=== PATIENT | male | born 1945 | race Two or more races ===

== ENCOUNTER 2017-10-14 20:04 | Inpatient (IN) | payer MEDICARE, OTHER ==
[~2017-10-14] VITALS: Ht 175.3 cm; Wt 110.7 kg
[~2017-10-14 20:04] MED LIST: FLOMAX0.4 MG ORAL; IBUPROFEN600 MG ORAL; KEFLEX500 MG ORAL; NKM; NORCO 5-325 TA1 EACH ORAL
[2017-10-14 20:18] VITALS: BP 108/65
[2017-10-14 20:57] LABS: BASOPHILS % (AUTO) 1.6 % (0.0-2.0); EOSINOPHILS % (AUTO) 2.5 % (0.0-3.0); HEMATOCRIT 44.4 % (42.0-52.0); HEMOGLOBIN 15.5 G/DL (14.2-18.0); LYMPHOCYTES % (AUTO) 25.4 % (20.0-45.0); MEAN CORPUSCULAR VOLUME 92 FL (80-99); MONOCYTES % (AUTO) 7.7 % (1.0-10.0); NEUTROPHILS % (AUTO) 62.9 % (45.0-75.0); PLATELET COUNT 164 K/UL (150-450); RED BLOOD COUNT 4.86 M/UL (4.70-6.10); RED CELL DISTRIBUTION WIDTH 12.5 % (11.6-14.8); WHITE BLOOD COUNT 7.8 K/UL (4.8-10.8)
[2017-10-14 21:09] LABS: ANION GAP 7 mmol/L (5-15); BLOOD UREA NITROGEN 19 mg/dL (7-18); CALCIUM 9.1 MG/DL (8.5-10.1); CARBON DIOXIDE 24 MMOL/L (21-32); CHLORIDE 107 MMOL/L (98-107); CREATININE 1.2 MG/DL (0.55-1.30); POTASSIUM 3.8 MMOL/L (3.5-5.1); SODIUM 138 MMOL/L (136-145)
[2017-10-14 21:22] LABS: ALANINE AMINOTRANSFERASE 31 U/L (12-78); ALBUMIN 3.5 G/DL (3.4-5.0); ALBUMIN/GLOBULIN RATIO 0.9 (1.0-2.7); ALKALINE PHOSPHATASE 64 U/L (46-116); ASPARTATE AMINO TRANSFERASE 59 U/L (15-37); BILIRUBIN,TOTAL 0.3 MG/DL (0.2-1.0); CKMB 80.9 NG/ML (0.0-3.6); CREATINE KINASE 603 U/L (26-308)
[2017-10-14] MEDS ORDERED: Nitroglycerin 2% oint pkt TOPIC ONE (21:30)
--- NOTE | 2017-10-14 22:07 | Emergency Room Report ---
History of Present Illness General Chief Complaint: Dyspnea/Respdistress Source: Patient (Obey Mitchell MD) Source: Patient (Spenser Hilario M.D.) Present Illness HPI 72-year-old male presents ED complaining of shortness of breath. Started 3 days ago. Notes some cough. States he short of breath while at rest. Notes some occasional chest pain. Sharp, 5 out of 10, nonradiating. Admits to smoking. Denies drug use. Notes history of lung cancer and had part of his lung resected at [facility]. No other aggravating relieving factors. Denies any other associated symptoms (Obey Mitchell MD) Allergies: Coded Allergies: NO KNOWN ALLERGIES (Unverified Allergy, Unknown, 10/03/15) Patient History Past Medical History: other - lung cancer Past Surgical History: none Pertinent Family History: none Social History: Reports: smoking; Denies: alcohol use, drug use Immunizations: UTD Reviewed Nursing Documentation: PMH: Agreed; PSxH: Agreed (Obey Mitchell MD) Nursing Documentation-PMH Past Medical History: No History, Except For Hx Cancer: Yes - lung cancer (Obey Mitchell MD) Review of Systems All Other Systems: negative except mentioned in HPI (Obey Mitchell MD) Physical Exam Vital Signs Date Time Temp Pulse Resp B/P (MAP) Pulse Ox O2 Delivery O2 Flow Rate FiO2 10/14/17 20:08 98.3 47 22 103/60 94 Room Air 98.2 Sp02 EP Interpretation: reviewed, normal General Appearance: no apparent distress, alert, GCS 15, non-toxic Head: normocephalic, atraumatic Eyes: bilateral eye normal inspection, bilateral eye PERRL ENT: hearing grossly normal, normal pharynx, no angioedema, normal voice Neck: full range of motion, supple/symm/no masses Respiratory: chest non-tender, lungs clear, normal breath sounds, speaking full sentences Cardiovascular #1: regular rate, rhythm, no edema Cardiovascular #2: 2+ carotid (R), 2+ carotid (L), 2+ radial (R), 2+ radial (L) , 2+ dorsalis pedis (R), 2+ dorsalis pedis (L) Gastrointestinal: normal bowel sounds, non tender, soft, non-distended, no guarding, no rebound Rectal: deferred Genitourinary: normal inspection, no CVA tenderness Musculoskeletal: back normal, gait/station normal, normal range of motion, non- tender Neurologic: alert, oriented x3, responsive, motor strength/tone normal, sensory intact, speech normal Psychiatric: judgement/insight normal, memory normal, mood/affect normal, no suicidal/homicidal ideation Reflexes: 3+ bicep (R), 3+ bicep (L), 3+ tricep (R), 3+ tricep (L), 3+ knee (R) , 3+ knee (L) Skin: normal color, no rash, warm/dry, well hydrated Lymphatic: no adenopathy (Obey Mitchell MD) Medical Decision Making Diagnostic Impression: Primary Impression: Dyspnea Qualified Codes: R06.00 - Dyspnea, unspecified Additional Impressions: Non-STEMI (non-ST elevated myocardial infarction) Non-small cell carcinoma of lung ER Course Please see the above report. Patient complains of dyspnea and also some right-sided upper back chest pain. He's been having dyspnea for a month that is worsened at this time. Her graft EKG shows sinus bradycardia with nonspecific ST-T wave changes. The patient does have a positive troponin. The patient is given aspirin and is also nitro paste. He needs to be admitted to for cardiac evaluation. We are unable to give metoprolol because of bradycardia. Discussed with Dr. Victoria. Laboratory Tests Test 10/14/17 20:40 10/15/17 01:51 White Blood Count 7.8 K/UL (4.8-10.8) 8.2 K/UL (4.8-10.8) Red Blood Count 4.86 M/UL (4.70-6.10) 4.67 M/UL (4.70-6.10) L Hemoglobin 15.5 G/DL (14.2-18.0) 14.8 G/DL (14.2-18.0) Hematocrit 44.4 % (42.0-52.0) 42.1 % (42.0-52.0) Mean Corpuscular Volume 92 FL (80-99) 90 FL (80-99) Mean Corpuscular Hemoglobin 31.8 PG (27.0-31.0) H 31.7 PG (27.0-31.0) H Mean Corpuscular Hemoglobin Concent 34.8 G/DL (32.0-36.0) 35.3 G/DL (32.0-36.0) Red Cell Distribution Width 12.5 % (11.6-14.8) 11.9 % (11.6-14.8) Platelet Count 164 K/UL (150-450) 197 K/UL (150-450) Mean Platelet Volume 8.1 FL (6.5-10.1) 8.3 FL (6.5-10.1) Neutrophils (%) (Auto) 62.9 % (45.0-75.0) 56.8 % (45.0-75.0) Lymphocytes (%) (Auto) 25.4 % (20.0-45.0) 29.9 % (20.0-45.0) Monocytes (%) (Auto) 7.7 % (1.0-10.0) 9.3 % (1.0-10.0) Eosinophils (%) (Auto) 2.5 % (0.0-3.0) 3.0 % (0.0-3.0) Basophils (%) (Auto) 1.6 % (0.0-2.0) 1.0 % (0.0-2.0) Sodium Level 138 MMOL/L (136-145) Potassium Level 3.8 MMOL/L (3.5-5.1) Chloride Level 107 MMOL/L (98-107) Carbon Dioxide Level 24 MMOL/L (21-32) Anion Gap 7 mmol/L (5-15) Blood Urea Nitrogen 19 mg/dL (7-18) H Creatinine 1.2 MG/DL (0.55-1.30) Estimate Glomerular Filtration Rate 59.9 mL/min (>60) Glucose Level 128 MG/DL (74-106) H Calcium Level 9.1 MG/DL (8.5-10.1) Total Bilirubin 0.3 MG/DL (0.2-1.0) Aspartate Amino Transferase (AST) 59 U/L (15-37) H Alanine Aminotransferase (ALT) 31 U/L (12-78) Alkaline Phosphatase 64 U/L (46-116) Total Creatine Kinase 603 U/L (26-308) H Creatine Kinase MB 80.9 NG/ML (0.0-3.6) H Creatine Kinase MB Relative Index 13.4 Troponin I 5.764 ng/mL (0.000-0.056) Pro-B-Type Natriuretic Peptide 83 pg/mL (0-125) Total Protein 7.5 G/DL (6.4-8.2) Albumin 3.5 G/DL (3.4-5.0) Globulin 4.0 g/dL Albumin/Globulin Ratio 0.9 (1.0-2.7) L PTT 26 SEC (23-33) D-Dimer Pending Hemoglobin A1c 6.1 % (4.3-6.0) H Triglycerides Level 105 MG/DL (30-150) Cholesterol Level 224 MG/DL (< 200) H LDL Cholesterol 177 mg/dL (<100) H HDL Cholesterol 39 MG/DL (40-60) L Cholesterol/HDL Ratio 5.7 (3.3-4.4) H (Spenser Hilario M.D.) EKG Diagnostic Results Rate: bradycardiac ST Segments: no acute changes ASA given to the pt in ED: Yes (Spenser Hilario M.D.) Rhythm Strip Diag. Results EP Interpretation: yes Rhythm: no PVC's, no ectopy, other - Bradycardia (Spenser Hilario M.D.) Chest X-Ray Diagnostic Results Chest X-Ray Diagnostic Results : Chest X-Ray Ordered: Yes # of Views/Limited/Complete: 1 View Indication: Shortness of Breath EP Interpretation: Yes Interpretation: no consolidation, no effusion, no pneumothorax Impression: Other Electronically Signed by: Spenser Hilario MD (Spenser Hilario M.D.) Last Vital Signs Date Time Temp Pulse Resp B/P (MAP) Pulse Ox O2 Delivery O2 Flow Rate FiO2 10/14/17 21:53 111/67 10/14/17 20:18 55 10 Room Air 10/14/17 20:18 98.2 98 98.2 (Obey Mitchell MD) Last Vital Signs Date Time Temp Pulse Resp B/P (MAP) Pulse Ox O2 Delivery O2 Flow Rate FiO2 10/15/17 06:08 98.3 10/15/17 04:00 53 10/15/17 04:00 20 86/53 98 Room Air Status: improved (Spenser Hilario M.D.) Disposition: ADMITTED INPATIENT Condition: Serious Referrals: NON PHYSICIAN (PCP) Obey Mitchell MD Oct 14, 2017 22:07 Spenser Hilario M.D. Oct 14, 2017 22:18
[2017-10-15] VITALS (7 sets, daily range): BP systolic 86–112; BP diastolic 48–71
[2017-10-15] MEDS ORDERED: Nitroglycerin Subl 0.4mg tab SL PRN (01:00)
[2017-10-15] MEDS ORDERED: Morphine Sulfate 2mg/ml Inj IVP PRN ×3 (01:00→05:00)
[2017-10-15] MEDS ORDERED: Heparin 25,000u/D5W 500ml 500 ML IV SCH ×3 (01:30→10:30)
[2017-10-15 02:18] LABS: HEMATOCRIT 42.1 % (42.0-52.0); HEMOGLOBIN 14.8 G/DL (14.2-18.0); LYMPHOCYTES % (AUTO) 29.9 % (20.0-45.0); MEAN CORPUSCULAR VOLUME 90 FL (80-99); MONOCYTES % (AUTO) 9.3 % (1.0-10.0); NEUTROPHILS % (AUTO) 56.8 % (45.0-75.0); PLATELET COUNT 197 K/UL (150-450); RED BLOOD COUNT 4.67 M/UL (4.70-6.10); RED CELL DISTRIBUTION WIDTH 11.9 % (11.6-14.8); WHITE BLOOD COUNT 8.2 K/UL (4.8-10.8)
[2017-10-15 02:58] LABS: CHOLESTEROL 224 MG/DL (< 200); HDL CHOLESTEROL 39 MG/DL (40-60); TRIGLYCERIDES 105 MG/DL (30-150)
[2017-10-15] MEDS ORDERED: Aspirin Baby 81mg ORAL SCH (09:00)
--- NOTE | 2017-10-15 10:02 | Diagnostic Imaging Report ---
Indication: Shortness of breath Technique: One view of the chest Comparison: none Findings: The heart is borderline enlarged. The lungs and pleural spaces are clear. Impression: Borderline cardiomegaly. No acute process
--- NOTE | 2017-10-15 10:21 | Consultation ---
Consult Note Consult Note PULMONARY CONSULTATION REFERRING PHYSICIAN: Adrián Larkin MD REASON FOR CONSULTATION: SOB/NSCLC HPI: 72 M smoker h/o NSCLC ([id number]) S/P RUL VATS wedge resection 06/15/17 p/w CP and SOB, noted to have a troponin of 5.764. He has been admitted to [facility] and started on IVUH. He had extensive Co artery Ca++ on CT chest but a non- ischemic stress test with Dr. Edson Quinn in 2017. The patient endorses several months of increasing SOB and chest discomfort, + cough, occ wheezing, no F/C. He continues to smoke 1 PPD. His pre-op PFT's did not demonstrate any obstruction. 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 PMH: HTN, BPH, NSCLC, RBILD, ? cocci PSH: VATS RUL/RML WEDGE RESECTION ALL: NKDA Active Scripts Medications Dose Route/Sig Max Daily Dose Days Date Category Keflex* (Cephalexin) 500 Mg Capsule 500 Mg ORAL EVERY 6 HOURS 10/03/15 Rx Flomax (Tamsulosin HCl) 0.4 Mg Cap 0.4 Mg ORAL DAILY 10 10/03/15 Rx [place] 5-325* (Acetaminophen/Hydrocodone Bitart) 1 Each Tablet 1 Tab ORAL Q6H PRN 10/03/15 Rx Motrin* (Ibuprofen) 600 Mg Tablet 600 Mg ORAL Q8H PRN 10/03/15 Rx NKM - No Known Medications* (No Known Medications*) . 0 . 10/03/15 Reported SHx: + 1PPD tobacco, no EtOH or drug abuse FHx: N/C ROS: Negative other than HPI PE: Last Vital Signs Date Time Temp Pulse Resp B/P (MAP) Pulse Ox O2 Delivery O2 Flow Rate FiO2 10/15/17 08:00 97.4 54 18 92/48 95 Room Air 97.4 GEN: NAD, AAOx3 HEENT: NC/AT, OPC c MMM NECK: Supple s LAD or JVD CHEST: CTA COR: RRR ABD: S/NT/ND c NABS EXT: No C/C/E Laboratory Tests Test 10/14/17 20:40 10/15/17 01:51 10/15/17 08:50 White Blood Count 7.8 K/UL (4.8-10.8) 8.2 K/UL (4.8-10.8) Red Blood Count 4.86 M/UL (4.70-6.10) 4.67 M/UL (4.70-6.10) L Hemoglobin 15.5 G/DL (14.2-18.0) 14.8 G/DL (14.2-18.0) Hematocrit 44.4 % (42.0-52.0) 42.1 % (42.0-52.0) Mean Corpuscular Volume 92 FL (80-99) 90 FL (80-99) Mean Corpuscular Hemoglobin 31.8 PG (27.0-31.0) H 31.7 PG (27.0-31.0) H Mean Corpuscular Hemoglobin Concent 34.8 G/DL (32.0-36.0) 35.3 G/DL (32.0-36.0) Red Cell Distribution Width 12.5 % (11.6-14.8) 11.9 % (11.6-14.8) Platelet Count 164 K/UL (150-450) 197 K/UL (150-450) Mean Platelet Volume 8.1 FL (6.5-10.1) 8.3 FL (6.5-10.1) Neutrophils (%) (Auto) 62.9 % (45.0-75.0) 56.8 % (45.0-75.0) Lymphocytes (%) (Auto) 25.4 % (20.0-45.0) 29.9 % (20.0-45.0) Monocytes (%) (Auto) 7.7 % (1.0-10.0) 9.3 % (1.0-10.0) Eosinophils (%) (Auto) 2.5 % (0.0-3.0) 3.0 % (0.0-3.0) Basophils (%) (Auto) 1.6 % (0.0-2.0) 1.0 % (0.0-2.0) Sodium Level 138 MMOL/L (136-145) Potassium Level 3.8 MMOL/L (3.5-5.1) Chloride Level 107 MMOL/L (98-107) Carbon Dioxide Level 24 MMOL/L (21-32) Anion Gap 7 mmol/L (5-15) Blood Urea Nitrogen 19 mg/dL (7-18) H Creatinine 1.2 MG/DL (0.55-1.30) Estimat Glomerular Filtration Rate 59.9 mL/min (>60) Glucose Level 128 MG/DL (74-106) H Calcium Level 9.1 MG/DL (8.5-10.1) Total Bilirubin 0.3 MG/DL (0.2-1.0) Aspartate Amino Transf (AST/SGOT) 59 U/L (15-37) H Alanine Aminotransferase (ALT/SGPT) 31 U/L (12-78) Alkaline Phosphatase 64 U/L (46-116) Total Creatine Kinase 603 U/L (26-308) H Creatine Kinase MB 80.9 NG/ML (0.0-3.6) H Creatine Kinase MB Relative Index 13.4 Troponin I 5.764 ng/mL (0.000-0.056) 30.279 ng/mL (0.000-0.056) Pro-B-Type Natriuretic Peptide 83 pg/mL (0-125) Total Protein 7.5 G/DL (6.4-8.2) Albumin 3.5 G/DL (3.4-5.0) Globulin 4.0 g/dL Albumin/Globulin Ratio 0.9 (1.0-2.7) L Activated Partial Thromboplast Time 26 SEC (23-33) 33 SEC (23-33) D-Dimer 0.27 mg/L FEU (0.00-0.49) Hemoglobin A1c 6.1 % (4.3-6.0) H Triglycerides Level 105 MG/DL (30-150) Cholesterol Level 224 MG/DL (< 200) H LDL Cholesterol 177 mg/dL (<100) H HDL Cholesterol 39 MG/DL (40-60) L Cholesterol/HDL Ratio 5.7 (3.3-4.4) H A. RIGHT MIDDLE LOBE MASS, WEDGE RESECTION: - Lung with granulomatous pneumonia showing nonnecrotizing granulomas with fungal spherules consistent with coccidioidomycosis - Focal respiratory bronchiolitis and microscopic meningothelial-like nodule are also present - Negative for tumor B. RIGHT UPPER LOBE MASS WEDGE RESECTION: - Lung with a poorly differentiated adenocarcinoma - Maximum tumor diameter: 1.2 cm - Solid (90%) and acinar (10%) growth features - Lymphovascular invasion: Not identified - Pleural invasion: Not identified - Four intrapulmonary lymph nodes, negative for tumor (0/4) - Resection margin: Free of tumor - Nonneoplastic lung parenchyma: Mild endogenous lipoid pneumonia adjacent to the tumor, respiratory bronchiolitis with mild peribronchiolar fibrosis, changes consistent with respiratory bronchiolitis interstitial lung disease (RB-ILD), microscopic meningothelial-like nodule C. RIGHT UPPER LOBE ADDITIONAL MARGIN, COMPLETION LOBECTOMY: - No residual tumor - Bronchial resection margin: Free of tumor - Peribronchial lymph nodes: Three intrapulmonary lymph nodes, negative for tumor (0/3) - Nonneoplastic lung parenchyma: Patchy areas of respiratory bronchiolitis with mild peribronchiolar fibrosis, centriacinar emphysema D. R4 LYMPH NODE, EXCISION: - Two small lymph nodes, negative for tumor (0/2) E. R2 LYMPH NODE, EXCISION: - Adipose tissue with recent hemorrhage, negative for tumor - No lymph node is seen Assessment/Plan ASSESSMENT: * NSTEMI * NSCLS S/P RUL VATS WEDGE RESECTION 05/2017 * RB-ILD * COCCIDIOMYCOSIS * Current daily smoker * HTN * HL * BPH PLAN: * Tele * Trend trop/ECG * Continue IVUH * ASA * Statin * Cardiology evaluation * May need transfer to [facility] for PCI * F/U TTE * F/U duplex and D-dimer Александр White MD Pulmonary & Critical Care Medicine Александр White MD Oct 15, 2017 10:21
[2017-10-15] MEDS ORDERED: Heparin 5000 units/ml inj IV ONE (10:30)
--- NOTE | 2017-10-15 14:02 | History and Physical ---
History of Present Illness General Date patient seen: Oct 15, 2017 Time patient seen: 14:02 Reason for Hospitalization: Dyspnea/Respdistress Present Illness HPI Patient is a 72 y/o male with a PMH of HTN, BPH, RBILD, tobacco abuse, NSCLC ( [id number]) s/p RUL and RML VATS wedge resection 06/15/17 who presented with chest pain and sob for several days that has been progressively worsened over last night. CXR was negative and EKG showed non-specific ST-T wave changes. Troponin was elevated at 5.764 and patient was started on IV heparin. Patient was also given ASA and nitropaste, which helped alleviate his chest pain. Patient was noted to have extensive coronary artery calcification on CT chest from prior records reviewed at [facility] and had a non-ischemic stress test in 2017. Patient reports months of progressive SOB and chest discomfort since the wedge resection. Reports non-productive cough and occasional wheezing. Reports substernal chest pain, non-radiating. Reports nausea but no vomiting. Denies f/ c. Continues to smoke 1 PPD. Denies alcohol or illicit drug use. Allergies: Coded Allergies: NO KNOWN ALLERGIES (Unverified Allergy, Unknown, 10/03/15) Medication History Scheduled Cephalexin* (Keflex*), 500 MG ORAL EVERY 6 HOURS No Known Medications* (NKM - No Known Medications*), 0 ., (Reported) Tamsulosin HCl (Flomax), 0.4 MG ORAL DAILY Scheduled PRN Hydrocodone Bit/Acetaminophen 5-325* ([place] 5-325*), 1 TAB ORAL Q6H PRN for For Pain Ibuprofen* (Motrin*), 600 MG ORAL Q8H PRN for For Pain Medications Narrative Active Scripts Medications Dose Route/Sig Max Daily Dose Days Date Category Keflex* (Cephalexin) 500 Mg Capsule 500 Mg ORAL EVERY 6 HOURS 10/03/15 Rx Flomax (Tamsulosin HCl) 0.4 Mg Cap 0.4 Mg ORAL DAILY 10 10/03/15 Rx [place] 5-325* (Acetaminophen/Hydrocodone Bitart) 1 Each Tablet 1 Tab ORAL Q6H PRN 10/03/15 Rx Motrin* (Ibuprofen) 600 Mg Tablet 600 Mg ORAL Q8H PRN 10/03/15 Rx NKM - No Known Medications* (No Known Medications*) . 0 . 10/03/15 Reported Patient History History Provided By: Patient, Medical Record Healthcare decision maker Resuscitation status Full Code Advanced Directive on File Review of Systems Constitutional: Reports: no symptoms Eye: Reports: no symptoms ENT: Reports: no symptoms Respiratory: Reports: cough, shortness of breath Cardiovascular: Reports: chest pain Gastrointestinal: Reports: nausea Genitourinary: Reports: no symptoms Musculoskeletal: Reports: no symptoms Skin: Reports: no symptoms Psychiatric: Reports: no symptoms Neurological: Reports: no symptoms Endocrine: Reports: no symptoms Hematologic/Lymphatic: Reports: no symptoms Physical Exam General Appearance: alert, mild distress, obese HEENT: normocephalic, atraumatic Neck: non-tender, normal alignment, supple Respiratory/Chest: chest wall non-tender, lungs clear, normal breath sounds Cardiovascular/Chest: normal peripheral pulses, normal rate, regular rhythm Abdomen: normal bowel sounds, non tender, soft Extremities: normal range of motion, non-tender, normal inspection Skin Exam: normal pigmentation, warm/dry 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, no motor/sensory deficits, alert, oriented x 3 Last 24 Hour Vital Signs Date Time Temp Pulse Resp B/P (MAP) Pulse Ox O2 Delivery O2 Flow Rate FiO2 10/15/17 12:00 98.2 54 18 94/57 95 Room Air 98.2 10/15/17 12:00 53 10/15/17 08:00 97.4 54 18 92/48 95 Room Air 97.4 10/15/17 08:00 54 10/15/17 07:07 98.3 10/15/17 06:08 98.3 10/15/17 04:00 53 10/15/17 04:00 98.1 51 20 86/53 98 Room Air 98.1 10/15/17 00:40 108/65 10/15/17 00:15 98.3 57 20 112/71 98 Room Air 98.3 10/14/17 21:53 111/67 10/14/17 20:18 55 10 Room Air 10/14/17 20:18 98.2 55 10 108/65 98 Room Air 98.2 10/14/17 20:08 98.3 47 22 103/60 94 Room Air 98.2 Intake and Output 10/14/17 10/15/17 19:00 07:00 Intake Total 129.688 ml Balance 129.688 ml Intake Oral 50 ml IV Total 79.688 ml Laboratory Tests Test 10/14/17 20:40 10/15/17 01:51 10/15/17 08:50 White Blood Count 7.8 K/UL (4.8-10.8) 8.2 K/UL (4.8-10.8) Red Blood Count 4.86 M/UL (4.70-6.10) 4.67 M/UL (4.70-6.10) L Hemoglobin 15.5 G/DL (14.2-18.0) 14.8 G/DL (14.2-18.0) Hematocrit 44.4 % (42.0-52.0) 42.1 % (42.0-52.0) Mean Corpuscular Volume 92 FL (80-99) 90 FL (80-99) Mean Corpuscular Hemoglobin 31.8 PG (27.0-31.0) H 31.7 PG (27.0-31.0) H Mean Corpuscular Hemoglobin Concent 34.8 G/DL (32.0-36.0) 35.3 G/DL (32.0-36.0) Red Cell Distribution Width 12.5 % (11.6-14.8) 11.9 % (11.6-14.8) Platelet Count 164 K/UL (150-450) 197 K/UL (150-450) Mean Platelet Volume 8.1 FL (6.5-10.1) 8.3 FL (6.5-10.1) Neutrophils (%) (Auto) 62.9 % (45.0-75.0) 56.8 % (45.0-75.0) Lymphocytes (%) (Auto) 25.4 % (20.0-45.0) 29.9 % (20.0-45.0) Monocytes (%) (Auto) 7.7 % (1.0-10.0) 9.3 % (1.0-10.0) Eosinophils (%) (Auto) 2.5 % (0.0-3.0) 3.0 % (0.0-3.0) Basophils (%) (Auto) 1.6 % (0.0-2.0) 1.0 % (0.0-2.0) Sodium Level 138 MMOL/L (136-145) Potassium Level 3.8 MMOL/L (3.5-5.1) Chloride Level 107 MMOL/L (98-107) Carbon Dioxide Level 24 MMOL/L (21-32) Anion Gap 7 mmol/L (5-15) Blood Urea Nitrogen 19 mg/dL (7-18) H Creatinine 1.2 MG/DL (0.55-1.30) Estimat Glomerular Filtration Rate 59.9 mL/min (>60) Glucose Level 128 MG/DL (74-106) H Calcium Level 9.1 MG/DL (8.5-10.1) Total Bilirubin 0.3 MG/DL (0.2-1.0) Aspartate Amino Transf (AST/SGOT) 59 U/L (15-37) H Alanine Aminotransferase (ALT/SGPT) 31 U/L (12-78) Alkaline Phosphatase 64 U/L (46-116) Total Creatine Kinase 603 U/L (26-308) H Creatine Kinase MB 80.9 NG/ML (0.0-3.6) H Creatine Kinase MB Relative Index 13.4 Troponin I 5.764 ng/mL (0.000-0.056) 30.279 ng/mL (0.000-0.056) Pro-B-Type Natriuretic Peptide 83 pg/mL (0-125) Total Protein 7.5 G/DL (6.4-8.2) Albumin 3.5 G/DL (3.4-5.0) Globulin 4.0 g/dL Albumin/Globulin Ratio 0.9 (1.0-2.7) L Activated Partial Thromboplast Time 26 SEC (23-33) 33 SEC (23-33) D-Dimer 0.27 mg/L FEU (0.00-0.49) Hemoglobin A1c 6.1 % (4.3-6.0) H Triglycerides Level 105 MG/DL (30-150) Cholesterol Level 224 MG/DL (< 200) H LDL Cholesterol 177 mg/dL (<100) H HDL Cholesterol 39 MG/DL (40-60) L Cholesterol/HDL Ratio 5.7 (3.3-4.4) H Height (Feet): 5 Height (Inches): 9.00 Weight (Pounds): 244 Medications Current Medications Medications (Trade) Dose Ordered Sig/Po Route PRN Reason Start Time Stop Time Status Last Admin Dose Admin Acetaminophen (Tylenol) 650 mg Q4H PRN ORAL Mild Pain/Temp > 100.5 10/15/17 01:00 11/14/17 00:59 10/15/17 06:08 Aspirin (ASA) 81 mg DAILY ORAL 10/15/17 09:00 11/14/17 08:59 10/15/17 08:39 Atorvastatin Calcium (Lipitor) 40 mg BEDTIME ORAL 10/15/17 21:00 11/14/17 20:59 Heparin Sodium/ Dextrose 500 ml @ 28.776 mls/ hr adjust per protocol IV 10/15/17 10:30 11/14/17 02:59 10/15/17 11:00 Morphine Sulfate (Morphine Sulfate) 1 mg Q4H PRN IVP Prn Chest Pain 10/15/17 05:00 10/22/17 00:59 Morphine Sulfate (Morphine Sulfate) 2 mg Q4H PRN IVP Severe Pain (Pain Scale 7-10) 10/15/17 01:00 10/22/17 00:59 Nitroglycerin (Ntg) 0.4 mg Q5M PRN SL Prn Chest Pain 10/15/17 01:00 11/14/17 00:59 Ondansetron HCl (Zofran) 4 mg Q6H PRN IVP Nausea & Vomiting 10/15/17 01:00 11/14/17 00:59 10/15/17 06:08 Assessment/Plan Problem List: (1) Non-small cell carcinoma of lung ICD Codes: C34.90 - Malignant neoplasm of unspecified part of unspecified bronchus or lung SNOMED: 009499081 (2) Tobacco abuse ICD Codes: Z72.0 - Tobacco use SNOMED: 384988432 (3) HTN (hypertension) ICD Codes: I10 - Essential (primary) hypertension SNOMED: 27469536 (4) Non-STEMI (non-ST elevated myocardial infarction) ICD Codes: I21.4 - Non-ST elevation (NSTEMI) myocardial infarction SNOMED: 212683316 (5) BPH (benign prostatic hyperplasia) ICD Codes: N40.0 - Benign prostatic hyperplasia without lower urinary tract symptoms SNOMED: 541566561 (6) Hyperlipidemia ICD Codes: E78.5 - Hyperlipidemia, unspecified SNOMED: 83381997 (7) Elevated troponin ICD Codes: R74.8 - Abnormal levels of other serum enzymes SNOMED: 291283576, 258668084, 269914048 (8) Dyspnea ICD Codes: R06.00 - Dyspnea, unspecified SNOMED: 462728333 (9) Prediabetes ICD Codes: R73.03 - Prediabetes SNOMED: 839527678 Status: stable, progressing Assessment/Plan - Admit to [facility] - Cardiology and pulmonology consulted, appreciate rec's - EKG with no acute ST-T wave changes - ECHO prelim 60-65% EF with no wall motion abnormality - trend trops 5.7 --> 30 - IV unfractionated heparin per pharmacy protocol - s/p ASA and nitropaste - LDL 177. Start statin - A1c 6.1. NISS at this time - continue home meds - pain control and supportive care Initiated transfer to [facility] for LHC. DVT Prophylaxis: on heparin gtt Code Status: Full Hospital Classification Declaration: Based on this initial evaluation, and depending on the patient's clinical course, I anticipate that this patient will require hospitalization for 1-2 days for elevated troponins and transfer to higher level of care and close respiratory/hemodynamic monitoring. Disposition: Once the patient is stable to leave the hospital, I anticipate the patient will likely be discharged to the following environment: [facility] I spent 72 minutes on this patient's case, and 39 minutes were dedicated to counseling and/or care coordination. Discussed with patient/family, nursing staff, SW/CM, cardiology and pulmonology regarding clinical status, treatment course, and disposition planning. Time of note may not reflect time of encounter. Case was d/w Dr. Larkin, who agrees to plan of care. Candice Stoddard NP Oct 15, 2017 14:02
--- NOTE | 2017-10-15 18:19 | Consultation ---
History of Present Illness General Date patient seen: Oct 15, 2017 Chief Complaint: Dyspnea/Respdistress Present Illness HPI SOB X 2 DAYS WITH NAUSEA AND CHEST PAIN. 2 M smoker h/o NSCLC ([id number]) S/P RUL VATS wedge resection 06/15/17 p/w CP and SOB, noted to have a troponin of 5.764. He has been admitted to [facility] and started on IVUH. He had extensive Co artery Ca++ on CT chest but a non-ischemic stress test with Dr. Edson Quinn in 2017. Troponin elevated and rising. Blood pressures low. Plan to send to [facility] for cath Allergies: Coded Allergies: NO KNOWN ALLERGIES (Unverified Allergy, Unknown, 10/03/15) Medication History Scheduled Cephalexin* (Keflex*), 500 MG ORAL EVERY 6 HOURS No Known Medications* (NKM - No Known Medications*), 0 ., (Reported) Tamsulosin HCl (Flomax), 0.4 MG ORAL DAILY Scheduled PRN Hydrocodone Bit/Acetaminophen 5-325* ([place] 5-325*), 1 TAB ORAL Q6H PRN for For Pain Ibuprofen* (Motrin*), 600 MG ORAL Q8H PRN for For Pain Patient History Healthcare decision maker Resuscitation status Full Code Advanced Directive on File Review of Systems Constitutional: Reports: no symptoms Eye: Reports: no symptoms ENT: Reports: no symptoms Respiratory: Reports: no symptoms Cardiovascular: Reports: chest pain Gastrointestinal: Reports: no symptoms Genitourinary: Reports: no symptoms Musculoskeletal: Reports: no symptoms Skin: Reports: no symptoms Psychiatric: Reports: no symptoms Neurological: Reports: no symptoms Endocrine: Reports: no symptoms Hematologic/Lymphatic: Reports: no symptoms Physical Exam General Appearance: no apparent distress Lines, tubes and drains: peripheral HEENT: normocephalic Neck: non-tender Respiratory/Chest: chest wall non-tender Cardiovascular/Chest: normal rate Abdomen: non tender Extremities: normal range of motion Skin Exam: normal pigmentation 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 normal Last 24 Hour Vital Signs Date Time Temp Pulse Resp B/P (MAP) Pulse Ox O2 Delivery O2 Flow Rate FiO2 10/15/17 17:29 52 96/56 10/15/17 16:00 49 10/15/17 16:00 97.3 53 20 88/59 97 Room Air 97.3 10/15/17 12:00 98.2 54 18 94/57 95 Room Air 98.2 10/15/17 12:00 53 10/15/17 08:00 97.4 54 18 92/48 95 Room Air 97.4 10/15/17 08:00 54 10/15/17 07:07 98.3 10/15/17 06:08 98.3 10/15/17 04:00 53 10/15/17 04:00 98.1 51 20 86/53 98 Room Air 98.1 10/15/17 00:40 108/65 10/15/17 00:15 98.3 57 20 112/71 98 Room Air 98.3 10/14/17 21:53 111/67 10/14/17 20:18 55 10 Room Air 10/14/17 20:18 98.2 55 10 108/65 98 Room Air 98.2 10/14/17 20:08 98.3 47 22 103/60 94 Room Air 98.2 Intake and Output 10/14/17 10/15/17 19:00 07:00 Intake Total 129.688 ml Balance 129.688 ml Intake Oral 50 ml IV Total 79.688 ml Laboratory Tests Test 10/14/17 20:40 10/15/17 01:51 10/15/17 08:50 White Blood Count 7.8 K/UL (4.8-10.8) 8.2 K/UL (4.8-10.8) Red Blood Count 4.86 M/UL (4.70-6.10) 4.67 M/UL (4.70-6.10) L Hemoglobin 15.5 G/DL (14.2-18.0) 14.8 G/DL (14.2-18.0) Hematocrit 44.4 % (42.0-52.0) 42.1 % (42.0-52.0) Mean Corpuscular Volume 92 FL (80-99) 90 FL (80-99) Mean Corpuscular Hemoglobin 31.8 PG (27.0-31.0) H 31.7 PG (27.0-31.0) H Mean Corpuscular Hemoglobin Concent 34.8 G/DL (32.0-36.0) 35.3 G/DL (32.0-36.0) Red Cell Distribution Width 12.5 % (11.6-14.8) 11.9 % (11.6-14.8) Platelet Count 164 K/UL (150-450) 197 K/UL (150-450) Mean Platelet Volume 8.1 FL (6.5-10.1) 8.3 FL (6.5-10.1) Neutrophils (%) (Auto) 62.9 % (45.0-75.0) 56.8 % (45.0-75.0) Lymphocytes (%) (Auto) 25.4 % (20.0-45.0) 29.9 % (20.0-45.0) Monocytes (%) (Auto) 7.7 % (1.0-10.0) 9.3 % (1.0-10.0) Eosinophils (%) (Auto) 2.5 % (0.0-3.0) 3.0 % (0.0-3.0) Basophils (%) (Auto) 1.6 % (0.0-2.0) 1.0 % (0.0-2.0) Sodium Level 138 MMOL/L (136-145) Potassium Level 3.8 MMOL/L (3.5-5.1) Chloride Level 107 MMOL/L (98-107) Carbon Dioxide Level 24 MMOL/L (21-32) Anion Gap 7 mmol/L (5-15) Blood Urea Nitrogen 19 mg/dL (7-18) H Creatinine 1.2 MG/DL (0.55-1.30) Estimat Glomerular Filtration Rate 59.9 mL/min (>60) Glucose Level 128 MG/DL (74-106) H Calcium Level 9.1 MG/DL (8.5-10.1) Total Bilirubin 0.3 MG/DL (0.2-1.0) Aspartate Amino Transf (AST/SGOT) 59 U/L (15-37) H Alanine Aminotransferase (ALT/SGPT) 31 U/L (12-78) Alkaline Phosphatase 64 U/L (46-116) Total Creatine Kinase 603 U/L (26-308) H Creatine Kinase MB 80.9 NG/ML (0.0-3.6) H Creatine Kinase MB Relative Index 13.4 Troponin I 5.764 ng/mL (0.000-0.056) 30.279 ng/mL (0.000-0.056) Pro-B-Type Natriuretic Peptide 83 pg/mL (0-125) Total Protein 7.5 G/DL (6.4-8.2) Albumin 3.5 G/DL (3.4-5.0) Globulin 4.0 g/dL Albumin/Globulin Ratio 0.9 (1.0-2.7) L Activated Partial Thromboplast Time 26 SEC (23-33) 33 SEC (23-33) D-Dimer 0.27 mg/L FEU (0.00-0.49) Hemoglobin A1c 6.1 % (4.3-6.0) H Triglycerides Level 105 MG/DL (30-150) Cholesterol Level 224 MG/DL (< 200) H LDL Cholesterol 177 mg/dL (<100) H HDL Cholesterol 39 MG/DL (40-60) L Cholesterol/HDL Ratio 5.7 (3.3-4.4) H Height (Feet): 5 Height (Inches): 9.00 Weight (Pounds): 244 Medications Current Medications Medications (Trade) Dose Ordered Sig/Po Route PRN Reason Start Time Stop Time Status Last Admin Dose Admin Acetaminophen (Tylenol) 650 mg Q4H PRN ORAL Mild Pain/Temp > 100.5 10/15/17 01:00 11/14/17 00:59 10/15/17 06:08 Aspirin (ASA) 81 mg DAILY ORAL 10/15/17 09:00 11/14/17 08:59 10/15/17 08:39 Atorvastatin Calcium (Lipitor) 40 mg BEDTIME ORAL 10/15/17 21:00 11/14/17 20:59 Heparin Sodium/ Dextrose 500 ml @ 28.776 mls/ hr adjust per protocol IV 10/15/17 10:30 11/14/17 02:59 10/15/17 11:00 Morphine Sulfate (Morphine Sulfate) 1 mg Q4H PRN IVP Prn Chest Pain 10/15/17 05:00 10/22/17 00:59 Morphine Sulfate (Morphine Sulfate) 2 mg Q4H PRN IVP Severe Pain (Pain Scale 7-10) 10/15/17 01:00 10/22/17 00:59 Nitroglycerin (Ntg) 0.4 mg Q5M PRN SL Prn Chest Pain 10/15/17 01:00 11/14/17 00:59 Ondansetron HCl (Zofran) 4 mg Q6H PRN IVP Nausea & Vomiting 10/15/17 01:00 11/14/17 00:59 10/15/17 06:08 Assessment/Plan Status: stable Assessment/Plan -Aspirin -Statin -Heparin gtt for elevated and rising troponin -TTE reviewed- normal LV function -Transfer to [facility] for cardiac catheterization Spenser Victoria M.D. Oct 15, 2017 18:19
[2017-10-15] MEDS ORDERED: Atorvastatin 20mg tab ORAL SCH (21:00)
[2017-10-15] MEDS ORDERED: NovoLOG Insulin Flexpen SUBQ SCH (21:00)
[2017-10-15] MEDS ORDERED: Tamsulosin 0.4mg cap ORAL SCH (21:00)
--- NOTE | 2017-10-16 15:12 | Discharge Summary ---
Discharge Summary Discharge Summary _ DATE OF ADMISSION: 10/14/2017 DATE OF DISCHARGE: 10/15/2017 REASON FOR ADMISSION: 72 years old male with a past medical history of hypertension, BPH, non-small cell cancer of the lung, status post right upper lobe VATS with wedge resection on 06/15/2017, presented with complaint of chest pain, nausea ,and shortness of breath. Patient apparently had extensive coronary artery calcium on CT chest but had nonischemic stress test with Dr. Schneider in 2017. 8 past medical history off coronary artery disease, status post left changes ejection on his Amaya presented to [facility] shortness of breath for 3 days and The patient endorsed several months of increasing shortness of breath and chest discomfort along with cough, occasional wheezing, no fever no chills. Patient continued smoking about 1 pack per day. Preoperative pulmonary function test did not demonstrate any obstruction. 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 Laboratory workup revealed no leukocytosis, stable hemoglobin and hematocrit , stable electrolytes Troponin elevated -5.764 EKG revealed sinus bradycardia, no acute ischemic changes. Chest x-ray revealed no acute cardiopulmonary pathology patient was given aspirin and nitroglycerin and was admitted to [facility] with diagnoses, of dyspnea, NSTEMI, non small cell cancer of the lung . CONSULTANTS: nursing education specialist pulmonary [facility] COURSE: Patient admitted to [facility]. Patient started on ASpirina nd Nitroglycerin Second troponin with further elevation 30.279 patient started on heparin drip nursing education specialist and manager drilling seen the patient Echocardiogram revealed preserved ejection fraction 60-65% moderate mitral regurgitation . no evidence of wall motion abnormality and right ventricular systolic pressure of 25. Lipid panel revealed elevated LDL -177 , total cholesterol to 224. Venous duplex bilateral lower extremity was negative. Per nursing education specialist, patient needs urgent transfer to [facility] for cardiac catheterization Supplemental oxygen provided as needed to keep pulse oximetry above 92%. Pain management was provided, pain was controlled. Supportive care provided. HgAc-6.2- at pre4=diabetes range, blood sugar management with SS of insulin Blood pressure was low, no antihypertensive, no beta molina due to low blood pressure and bradycardia. Flomax continued. Patient was counseled on smoking cessation Transfer was arranged to [facility] for cardiac catheterization and further management. 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 I was not involved in the patient's management. Jazmine Hughes NP Oct 16, 2017 15:12
== END 2017-10-15 21:05 | disposition short-term general hospital (02) | DRG 281 ==
LOC: EMR 20:30 → 2W 22:06 → EDBEDREQ 23:10
DX: I21.4 Non-ST elevation (NSTEMI) myocardial infarction (principal); B38.9 Coccidioidomycosis, unspecified; C34.90 Malignant neoplasm of unspecified part of unspecified bronchus or lung; F17.200 Nicotine dependence, unspecified, uncomplicated; I10 Essential (primary) hypertension; N40.0 Benign prostatic hyperplasia without lower urinary tract symptoms; E78.5 Hyperlipidemia, unspecified; R73.03 Prediabetes; J84.115 Respiratory bronchiolitis interstitial lung disease
CPT/HCPCS: 36415; 71045; 80053; 80061; 82550; 82553; 83036; 83880; 84484; 85025; 85379; 85730; 93005; 93306; 93970; 99285; J2405